=== PATIENT | male | born 1985 | race African-American/Black ===

== ENCOUNTER 2021-08-30 18:06 | Emergency (ER) | payer MEDICAID, OTHER ==
[~2021-08-30] VITALS: Ht 185.4 cm; Wt 81.6 kg
[2021-08-30 19:02] LABS: CALCIUM, SERUM 9.4 mg/dL (8.5-10.1); CARBON DIOXIDE 24 mmol/L (21-32); CHLORIDE 105 mmol/L (98-107); CREATININE 1.4 mg/dL (0.6-1.3); GLUCOSE 113 mg/dL (74-106); POTASSIUM 3.6 mmol/L (3.5-5.1); SODIUM SERUM 141 mmol/L (136-145); UREA NITROGEN, BLOOD 8 mg/dL (7-18)
[2021-08-30 19:08] LABS: ALANINE AMINOTRANSFERASE 30 U/L (12-78); ALCOHOL, BLOOD 5 mg/dL (0-0); ALKALINE PHOSPHATASE 56 U/L (46-116); ASPARTATE AMINOTRANSFERASE 23 U/L (15-37); BILIRUBIN,DIRECT 0.1 mg/dL (0.0-0.2); BILIRUBIN,TOTAL 0.4 mg/dL (0.2-1.0); TOTAL PROTEIN, SERUM 8.2 g/dL (6.4-8.2)
[2021-08-30 19:10] LABS: ACETAMINOPHEN < 2 ug/ml (10-30)
[2021-08-30 19:46] LABS: BASOPHILS % (AUTO) 0.7 % (0.0-2.0); EOSINOPHILS % (AUTO) 5.1 % (0.0-6.0); HEMATOCRIT 39 % (39-51); HEMOGLOBIN 13.3 g/dL (13.5-17.5); LYMPHOCYTES # (AUTO) 2.8 K/uL (0.8-4.8); LYMPHOCYTES % (AUTO) 43.9 % (20.0-44.0); MEAN CORPUSCULAR HGB CONC 34 g/dl (31.0-36.0); MEAN CORPUSCULAR VOLUME 79 fL (80-96); MONOCYTES # (AUTO) 0.6 K/uL (0.1-1.30); MONOCYTES % (AUTO) 9.3 % (2.0-12.0); NEUTROPHILS # (AUTO) 2.6 K/uL (1.8-8.9); PLATELET COUNT (AUTO) 319 K/uL (150-450); WHITE BLOOD COUNT (AUTO) 6.4 K/uL (4.3-11.0)
--- NOTE | 2021-08-30 20:15 | NUR ---
URINE COLLECTED AND SENT TO LAB
[2021-08-30 20:40] LABS: BILIRUBIN,URINE NEGATIVE (NEGATIVE); COLOR,URINE YELLOW (YELLOW); LEUKOCYTE ESTERASE ,URINE NEGATIVE (NEGATIVE); NITRITE, URINE NEGATIVE (NEGATIVE); PROTEIN,URINE NEGATIVE (NEGATIVE); UGLUCOSE NEGATIVE (NEGATIVE)
[2021-08-30 21:02] LABS: BACTERIA,URINE None seen /HPF (None Seen); RBC,URINE NONE SEEN /HPF (0-2); SQUAMOUS EPITHELIAL CELL,UR None Seen /HPF (None Seen); WBC,URINE NONE SEEN /HPF (0-3)
--- NOTE | 2021-08-30 21:38 | NUR ---
COVID SWAB DONE AND SENT TO LAB
--- NOTE | 2021-08-30 22:48 | NUR ---
FACESHEET AND CLINICALS FAXED TO [facility].
--- NOTE | 2021-08-31 00:50 | NUR ---
[facility] ([facility] [place]) [phone]
--- NOTE | 2021-08-31 02:22 | NUR ---
PT ACCEPTED TO [facility] TRACY ROOM-11 C REPORT # [id number]. [id number]
--- NOTE | 2021-08-31 02:30 | NUR ---
[facility] CALLED TO TRANSPORT PT TO [facility]. [facility] ETA 1 HOUR.
--- NOTE | 2021-08-31 02:36 | NUR ---
GAVE REPORT TO ANUM CAMPOS FOR [facility]
[2021-08-31 03:00] VITALS: BP 133/78
--- NOTE | 2021-08-31 03:30 | NUR ---
GAVE REPORT TO EMS
== END 2021-08-31 03:30 ==
LOC: ER 18:14
DX: R45.851 Suicidal ideations (principal); Z59.00 Homelessness unspecified; Z20.822 Contact with and (suspected) exposure to COVID-19; F19.10 Other psychoactive substance abuse, uncomplicated; F15.10 Other stimulant abuse, uncomplicated
CPT/HCPCS: 36415; 80048; 80076; 80143; 80307; 80320; 81001; 85025; 87426; 99285; C9803; G0480